=== PATIENT | female | born 1990 ===

== ENCOUNTER 2016-08-19 19:44 | Emergency (ER) | payer BC, OTHER ==
[2016-08-19 19:56] VITALS: BP 113/77
--- NOTE | 2016-08-19 20:24 | UC ---
Abdominal Pain Female HPI - HPI Summary HPI Summary: 25 yo female with intermittent LUQ abd pain x 4-5 days onset after change in diet and increased Etoh intermittent seems to worsen with cold water or fatty food pain can last minutes to 1-2 hours Can be anywhere from a 3-7 has been watching her diet since the onset of pain and it her pain has been steadily decreasing no pain currently no vomiting or diarrhea some nausea - History of Current Complaint Chief Complaint: UCAbdominalPain Stated Complaint: ABDOMINAL PAIN Time Seen by Provider: 08/19/16 19:58 Hx Obtained From: Patient Hx Last Menstrual Period: 07/29/16 Onset/Duration: Sudden Onset, Lasting Minutes Timing: Constant Severity Initially: Moderate Severity Currently: None Pain Intensity: 0 Pain Scale Used: 0-10 Numeric Location: Discrete At: LUQ Radiates: No Character: Cramping, Dull Aggravating Factor(s): Food Alleviating Factor(s): Other: - bland diet Associated Signs and Symptoms: Positive: Decreased Appetite, Nausea. Negative: Diaphoresis, Fever, Cough, Chest Pain, Dizzy, Back Pain, Constipation, Blood in Stool, Urinary Symptoms, Vaginal Bleeding, Vaginal Discharge, Vomiting, Diarrhea Allergies/Adverse Reactions: Allergies Allergy/AdvReac Type Severity Reaction Status Date / Time No Known Allergies Allergy Verified 08/19/16 19:56 PMH/Surg Hx/FS Hx/Imm Hx Previously Healthy: Yes - Surgical History Surgical History: Yes Surgery Procedure, Year, and Place: COLPOSCOPY ANNUALLY, PYOGENIC GRANULOMA REMOVED 2011 - Family History Known Family History: Positive: Other - kidney stones Negative: Cardiac Disease, Hypertension, Diabetes - Social History Alcohol Use: Daily Alcohol Amount: 1 DRINK/DAY Substance Use Type: None Smoking Status (MU): Never Smoked Tobacco Review of Systems Constitutional: Negative Skin: Negative Eyes: Negative ENT: Negative Respiratory: Negative Cardiovascular: Negative Gastrointestinal: Abdominal Pain Genitourinary: Negative Motor: Negative Neurovascular: Negative Musculoskeletal: Negative Neurological: Negative Psychological: Negative All Other Systems Reviewed And Are Negative: Yes Physical Exam Triage Information Reviewed: Yes Appearance: Well-Appearing, No Pain Distress, Well-Nourished Vital Signs: Initial Vital Signs Temp 98.6 F 08/19/16 19:53 Pulse 76 08/19/16 19:53 Resp 16 08/19/16 19:53 BP 113/77 08/19/16 19:53 Pulse Ox 100 08/19/16 19:53 Vital Signs Reviewed: Yes Eyes: Positive: Conjunctiva Clear ENT: Positive: Hearing grossly normal. Negative: Pharyngeal erythema, Nasal congestion, TMs normal, Trismus, Muffled/hoarse voice Neck: Positive: Supple, Nontender, No Lymphadenopathy Respiratory: Positive: Lungs clear, Normal breath sounds, No respiratory distress, No accessory muscle use Cardiovascular: Positive: RRR, No Murmur Abdomen Description: Positive: No Organomegaly, Soft. Negative: Nontender, CVA Tenderness (R), CVA Tenderness (L), Guarding, Hepatomegaly, Pulsatile Mass, Splenomegaly Bowel Sounds: Positive: Present Musculoskeletal: Positive: Strength Intact, ROM Intact Neurological: Positive: Alert Psychological Exam: Normal Skin Exam: Normal Abd Pain Female Course/Dx - Differential Dx/Diagnosis Provider Diagnoses: abdominal pain- suspect gastritis Discharge - Discharge Plan Condition: Stable Disposition: HOME Prescriptions: Famotidine TAB* [Pepcid 20 MG TAB*] 20 mg PO DAILY #14 tab Patient Education Materials: Gastritis (ED) Referrals: [facility] [place] [facility] [Outside] - If Needed Additional Instructions: return for new or worsening symptoms or if not better in 3-4 days
== END 2016-08-19 20:50 | disposition home or self-care (01) ==
LOC: UCEAST 19:44
DX: R10.12 Left upper quadrant pain (principal)
CPT/HCPCS: 81003; 99212; G0463